=== PATIENT | male | born 1945 | race Caucasian/White ===

== ENCOUNTER 2022-10-20 15:23 | Inpatient (IN) | payer OTHER, MEDICAID ==
[~2022-10-20] VITALS: Ht 172.7 cm; Wt 74.8 kg
[2022-10-20] MEDS ORDERED: FUROSEMIDE 40MG/4ML VIAL IVP ONE (16:30)
[2022-10-20 17:32] LABS: BASOPHILS % 0.3 % (0.0-2.0); EOSINOPHILS % 0.2 % (0.0-5.0); HEMATOCRIT. 41.7 % (42.0-52.0); HEMOGLOBIN. 13.5 g/dL (14.0-18.0); LYMPHOCYTES % 9.6 % (20.0-50.0); MEAN CORPUSCULAR VOLUME 101.6 fL (80.0-94.0); MEAN PLATELET VOLUME 11.1 fl (7.4-10.4); MONOCYTES % 9.1 % (2.0-8.0); NEUTROPHILS % 80.8 % (40.0-76.0); PLATELET 122 x1000/uL (130-400); RED BLOOD CELL COUNT 4.11 mill/uL (4.7-6.1); RED CELL DISTRIBUTION WIDTH 16.5 % (11.6-14.6)
[2022-10-20 17:40] LABS: CHLORIDE 102 mEq/L (98-107)
[2022-10-20 18:33] LABS: CLARITY URINE CLEAR (CLEAR); COLOR URINE DARK YELLOW (YELLOW); KETONES URINE NEGATIVE (NEGATIVE); LEUKOCYTE ESTERASE URINE NEGATIVE (NEGATIVE); NITRITE URINE NEGATIVE (NEGATIVE); OCCULT BLOOD URINE NEGATIVE (NEGATIVE); PROTEIN URINE 1+ (NEGATIVE); SPECIFIC GRAVITY URINE 1.018 (1.005-1.030)
[2022-10-21] VITALS (8 sets, daily range): BP systolic 111–129; BP diastolic 62–80
[2022-10-21] MEDS ORDERED: DOCUSATE SODIUM 100MG CAPSULE PO PRN (08:15)
[2022-10-21] MEDS ORDERED: ACETAMINOPHEN 325MG TABLET PO PRN ×2 (08:15)
[2022-10-21] MEDS ORDERED: CLONIDINE 0.1MG TABLET PO PRN (08:15)
[2022-10-21] MEDS ORDERED: ONDANSETRON HCL 4MG/2ML INJ IV PRN (08:15)
[2022-10-21] MEDS ORDERED: HYDROCODONE/ACETAMINOPHEN 5/325MG TABLET PO PRN (08:15)
[2022-10-21] MEDS ORDERED: LORAZEPAM 0.5MG TABLET PO PRN (08:15)
[2022-10-21] MEDS ORDERED: IPRATROPIUM/ALBUTEROL 0.5-3(2.5)MG/3ML NEB HHN PRN (08:15)
[2022-10-21] MEDS ORDERED: NALOXONE HCL 0.4MG/ML VIAL IV PRN (08:30)
[2022-10-21 08:59] LABS: HEPATITIS B SURFACE ANTIGEN NEGATIVE
[2022-10-21] MEDS: FUROSEMIDE 40MG/4ML VIAL IVP SCH ×2 (09:55→18:12)
[2022-10-21] MEDS ORDERED: DIGOXIN 500MCG/2ML AMP IV NR (12:00)
[2022-10-21] MEDS ORDERED: ENOXAPARIN 100MG/ML SYR SUBCUT SCH (12:00)
[2022-10-21] MEDS ORDERED: DIGOXIN 500MCG/2ML AMP IV PRN (14:00)
[2022-10-21] MEDS: DILTIAZEM HCL 60MG TABLET PO SCH ×2 (14:19→21:18)
[2022-10-21 16:57] LABS: INR 1.4; PROTHROMBIN TIME 14.5 sec (9.6-11.0)
[2022-10-21 17:46] LABS: VITAMIN B12 SERUM >2000 pg/mL pg/mL (211-911)
[2022-10-21 17:56] LABS: *AMPHETAMINES SCREEN URINE NEGATIVE (NEGATIVE); *BARBITURATES SCREEN URINE NEGATIVE (NEGATIVE); *BENZODIAZEPINES SCREEN URINE NEGATIVE (NEGATIVE); *COCAINE SCREEN URINE NEGATIVE (NEGATIVE); CANNABINOID URINE SCREEN NEGATIVE (NEGATIVE); METHADONE URINE SCREEN NEGATIVE (NEGATIVE); OPIATES URINE SCREEN NEGATIVE (NEGATIVE); PHENCYCLIDINE URINE SCREEN NEGATIVE (NEGATIVE)
[2022-10-21] MEDS: DIGOXIN 500MCG/2ML AMP IV SCH (18:13)
[2022-10-21] MEDS: ENOXAPARIN 100MG/ML SYR SUBCUT SCH (21:18)
[2022-10-22] VITALS (7 sets, daily range): BP systolic 100–131; BP diastolic 59–72
[2022-10-22 06:47] LABS: BASOPHILS % 0.6 % (0.0-2.0); EOSINOPHILS % 1.2 % (0.0-5.0); HEMATOCRIT. 35.4 % (42.0-52.0); LYMPHOCYTES % 9.5 % (20.0-50.0); MEAN CORPUSCULAR HEMOGLOBIN 34.3 pg (28.0-32.0); MEAN CORPUSCULAR VOLUME 101.2 fL (80.0-94.0); MEAN PLATELET VOLUME 10.7 fl (7.4-10.4); MONOCYTES % 9.2 % (2.0-8.0); NEUTROPHILS % 79.5 % (40.0-76.0); PLATELET 100 x1000/uL (130-400); RED CELL DISTRIBUTION WIDTH 16.1 % (11.6-14.6)
[2022-10-22] MEDS: DILTIAZEM HCL 60MG TABLET PO SCH (06:56)
[2022-10-22] MEDS: FUROSEMIDE 40MG/4ML VIAL IVP SCH ×2 (09:07→17:42)
[2022-10-22] MEDS: ENOXAPARIN 100MG/ML SYR SUBCUT SCH ×2 (09:08→20:42)
[2022-10-22] MEDS ORDERED: CARVEDILOL 3.125 MG TABLET PO NR (13:00)
[2022-10-22] MEDS: MAGNESIUM OXIDE 400MG TABLET PO SCH (13:00)
[2022-10-22] MEDS ORDERED: MAGNESIUM 2 G PREMIX 50 ML IV NR (14:00)
[2022-10-22] MEDS ORDERED: POTASSIUM CHLORIDE 20MEQ/PACKET PO NR (15:00)
[2022-10-22] MEDS: DILTIAZEM HCL 30MG TABLET PO SCH ×2 (15:26→22:00)
[2022-10-22] MEDS: DIGOXIN 500MCG/2ML AMP IV SCH (17:41)
[2022-10-22 17:59] LABS: HEPATITIS B SURFACE ANTIGEN NEGATIVE
[2022-10-22] MEDS: CARVEDILOL 3.125 MG TABLET PO SCH (20:42)
[2022-10-23 04:00] VITALS: BP 97/59
[2022-10-23] MEDS: DILTIAZEM HCL 30MG TABLET PO SCH ×3 (05:41→22:50)
[2022-10-23 07:21] LABS: BASOPHILS % 0.8 % (0.0-2.0); EOSINOPHILS % 3.6 % (0.0-5.0); HEMATOCRIT. 34.4 % (42.0-52.0); HEMOGLOBIN. 11.8 g/dL (14.0-18.0); LYMPHOCYTES % 10.3 % (20.0-50.0); MEAN CORPUSCULAR HEMOGLOBIN 34.4 pg (28.0-32.0); MEAN CORPUSCULAR VOLUME 100.6 fL (80.0-94.0); MEAN PLATELET VOLUME 10.8 fl (7.4-10.4); MONOCYTES % 11.4 % (2.0-8.0); NEUTROPHILS % 73.9 % (40.0-76.0); PLATELET 114 x1000/uL (130-400); RED BLOOD CELL COUNT 3.41 mill/uL (4.7-6.1); RED CELL DISTRIBUTION WIDTH 15.8 % (11.6-14.6)
[2022-10-23 08:00] VITALS: BP 123/83
[2022-10-23] MEDS: FUROSEMIDE 40MG/4ML VIAL IVP SCH ×2 (08:36→16:29)
[2022-10-23] MEDS: ENOXAPARIN 100MG/ML SYR SUBCUT SCH (08:37)
[2022-10-23] MEDS: LISINOPRIL 2.5MG TABLET PO SCH (08:37)
[2022-10-23] MEDS: MAGNESIUM OXIDE 400MG TABLET PO SCH (08:38)
[2022-10-23] MEDS: CARVEDILOL 3.125 MG TABLET PO SCH ×2 (08:38→21:00)
[2022-10-23] MEDS ORDERED: POTASSIUM CHLORIDE 20MEQ/PACKET PO NR (11:30)
[2022-10-23 12:00] VITALS: BP 118/60
[2022-10-23 16:00] VITALS: BP 106/61
[2022-10-23] MEDS: DIGOXIN 125MCG TABLET PO SCH (17:28)
[2022-10-23 20:19] VITALS: BP 120/60
[2022-10-23] MEDS: ENOXAPARIN 80MG/0.8ML SYR SUBCUT SCH (21:55)
[2022-10-24] VITALS: BP 113/65
[2022-10-24 04:00] VITALS: BP 106/63
[2022-10-24 05:50] LABS: BASOPHILS % 0.6 % (0.0-2.0); EOSINOPHILS % 3.8 % (0.0-5.0); HEMATOCRIT. 35.9 % (42.0-52.0); HEMOGLOBIN. 11.9 g/dL (14.0-18.0); MEAN CORPUSCULAR HEMOGLOBIN 33.2 pg (28.0-32.0); MEAN CORPUSCULAR VOLUME 99.8 fL (80.0-94.0); MONOCYTES % 12.7 % (2.0-8.0); NEUTROPHILS % 68.9 % (40.0-76.0); PLATELET 126 x1000/uL (130-400); RED BLOOD CELL COUNT 3.59 mill/uL (4.7-6.1); RED CELL DISTRIBUTION WIDTH 15.9 % (11.6-14.6)
[2022-10-24] MEDS: DILTIAZEM HCL 30MG TABLET PO SCH ×3 (06:00→22:00)
[2022-10-24] MEDS ORDERED: LIDOCAINE HCL 4% CREAM 76GM TUBE TP SCH (07:00)
[2022-10-24 08:01] VITALS: BP 117/61
[2022-10-24 08:08] LABS: HIV SCREEN 4G Non Reactive (Non Reactive)
[2022-10-24] MEDS: FUROSEMIDE 40MG/4ML VIAL IVP SCH ×2 (09:00→17:14)
[2022-10-24] MEDS: LISINOPRIL 2.5MG TABLET PO SCH (09:00)
[2022-10-24] MEDS: MAGNESIUM OXIDE 400MG TABLET PO SCH (09:01)
[2022-10-24] MEDS: CARVEDILOL 3.125 MG TABLET PO SCH ×2 (09:01→21:00)
[2022-10-24] MEDS: ENOXAPARIN 80MG/0.8ML SYR SUBCUT SCH ×2 (09:01→21:08)
[2022-10-24 11:26] VITALS: BP 133/55
[2022-10-24] MEDS ORDERED: POTASSIUM CHLORIDE 20MEQ TABLET SR PO NR (11:45)
[2022-10-24 15:25] VITALS: BP 131/73
[2022-10-24] MEDS: DIGOXIN 125MCG TABLET PO SCH (17:14)
[2022-10-24 19:54] VITALS: BP 122/64
[2022-10-24] MEDS ORDERED: POTASSIUM CHLORIDE 20MEQ/PACKET PO NR (21:00)
[2022-10-25] VITALS (7 sets, daily range): BP systolic 92–136; BP diastolic 40–61
[2022-10-25] MEDS: DILTIAZEM HCL 30MG TABLET PO SCH ×3 (06:02→21:06)
[2022-10-25 06:48] LABS: BASOPHILS % 0.8 % (0.0-2.0); EOSINOPHILS % 1.4 % (0.0-5.0); HEMATOCRIT. 32.3 % (42.0-52.0); HEMOGLOBIN. 10.6 g/dL (14.0-18.0); LYMPHOCYTES % 12.9 % (20.0-50.0); MEAN CORPUSCULAR VOLUME 100.6 fL (80.0-94.0); MEAN PLATELET VOLUME 9.8 fl (7.4-10.4); MONOCYTES % 14.8 % (2.0-8.0); NEUTROPHILS % 70.1 % (40.0-76.0); PLATELET 133 x1000/uL (130-400); RED BLOOD CELL COUNT 3.21 mill/uL (4.7-6.1); RED CELL DISTRIBUTION WIDTH 16.1 % (11.6-14.6)
[2022-10-25 08:26] LABS: CHLORIDE 102 mEq/L (98-107)
[2022-10-25] MEDS: LISINOPRIL 2.5MG TABLET PO SCH (08:37)
[2022-10-25] MEDS: FUROSEMIDE 40MG/4ML VIAL IVP SCH ×2 (08:37→17:00)
[2022-10-25] MEDS: MAGNESIUM OXIDE 400MG TABLET PO SCH (08:37)
[2022-10-25] MEDS: ENOXAPARIN 80MG/0.8ML SYR SUBCUT SCH (08:38)
[2022-10-25] MEDS: CARVEDILOL 3.125 MG TABLET PO SCH ×2 (08:38→21:00)
[2022-10-25 08:46] LABS: DIGOXIN 0.7 ng/mL (0.9-2.0)
[2022-10-25] MEDS ORDERED: ALBUTEROL (0.083%) 2.5MG/3ML NEB HHN PRN (16:30)
[2022-10-25] MEDS ORDERED: IPRATROPIUM BROMIDE (0.02%) 0.5MG/2.5ML NEB HHN PRN (16:30)
[2022-10-25] MEDS ORDERED: RIVAROXABAN 10 MG TABLET PO SCH (17:00)
[2022-10-25] MEDS: DIGOXIN 125MCG TABLET PO SCH (18:00)
[2022-10-26] VITALS (7 sets, daily range): BP systolic 91–145; BP diastolic 41–76
[2022-10-26] MEDS: DILTIAZEM HCL 30MG TABLET PO SCH ×3 (06:00→22:00)
[2022-10-26 07:10] LABS: BASOPHILS % 0.5 % (0.0-2.0); EOSINOPHILS % 0.6 % (0.0-5.0); HEMATOCRIT. 24.5 % (42.0-52.0); HEMOGLOBIN. 8.2 g/dL (14.0-18.0); LYMPHOCYTES % 11.7 % (20.0-50.0); MEAN CORPUSCULAR HEMOGLOBIN 33.7 pg (28.0-32.0); MEAN PLATELET VOLUME 9.7 fl (7.4-10.4); MONOCYTES % 12.9 % (2.0-8.0); NEUTROPHILS % 74.3 % (40.0-76.0); PLATELET 124 x1000/uL (130-400); RED BLOOD CELL COUNT 2.42 mill/uL (4.7-6.1); RED CELL DISTRIBUTION WIDTH 15.7 % (11.6-14.6)
[2022-10-26 07:39] LABS: CHLORIDE 102 mEq/L (98-107)
[2022-10-26] MEDS: CARVEDILOL 3.125 MG TABLET PO SCH ×2 (09:00→21:00)
[2022-10-26] MEDS: LISINOPRIL 2.5MG TABLET PO SCH (09:00)
[2022-10-26] MEDS: FUROSEMIDE 40MG/4ML VIAL IVP SCH ×2 (09:34→17:00)
[2022-10-26] MEDS: MAGNESIUM OXIDE 400MG TABLET PO SCH (09:34)
[2022-10-26] MEDS: DIGOXIN 125MCG TABLET PO SCH (18:00)
[2022-10-27] VITALS (11 sets, daily range): BP systolic 92–113; BP diastolic 44–65
[2022-10-27] MEDS: DILTIAZEM HCL 30MG TABLET PO SCH ×3 (06:00→22:00)
[2022-10-27 07:53] LABS: CHLORIDE 102 mEq/L (98-107)
[2022-10-27 08:15] LABS: BASOPHILS % 0.6 % (0.0-2.0); EOSINOPHILS % 0.6 % (0.0-5.0); LYMPHOCYTES % 15.5 % (20.0-50.0); MEAN CORPUSCULAR HEMOGLOBIN 34.1 pg (28.0-32.0); MEAN CORPUSCULAR VOLUME 101.1 fL (80.0-94.0); MONOCYTES % 14.4 % (2.0-8.0); NEUTROPHILS % 68.9 % (40.0-76.0); PLATELET 129 x1000/uL (130-400); RED CELL DISTRIBUTION WIDTH 16.1 % (11.6-14.6)
[2022-10-27] MEDS: LISINOPRIL 2.5MG TABLET PO SCH (08:46)
[2022-10-27] MEDS: CARVEDILOL 3.125 MG TABLET PO SCH ×2 (08:46→21:00)
[2022-10-27 08:58] LABS: HEMATOCRIT. 20.2 % (42.0-52.0); HEMOGLOBIN. 6.8 g/dL (14.0-18.0)
[2022-10-27] MEDS: MAGNESIUM OXIDE 400MG TABLET PO SCH (09:04)
[2022-10-27] MEDS: FUROSEMIDE 40MG/4ML VIAL IVP SCH ×2 (09:04→17:34)
[2022-10-27 11:13] LABS: T4 FREE 1.07 ng/dL (0.76-1.46)
[2022-10-27] MEDS: DIGOXIN 125MCG TABLET PO SCH (17:30)
[2022-10-27 19:29] LABS: HEMATOCRIT 22.1 % (42.0-52.0); HEMOGLOBIN 7.5 g/dL (14.0-18.0)
[2022-10-28] VITALS: BP 112/55
[2022-10-28 04:00] VITALS: BP 107/53
[2022-10-28] MEDS: DILTIAZEM HCL 30MG TABLET PO SCH (06:00)
[2022-10-28 07:10] LABS: BASOPHILS % 0.5 % (0.0-2.0); EOSINOPHILS % 0.6 % (0.0-5.0); HEMATOCRIT. 22.9 % (42.0-52.0); HEMOGLOBIN. 7.9 g/dL (14.0-18.0); MEAN CORPUSCULAR HEMOGLOBIN 34.7 pg (28.0-32.0); MEAN CORPUSCULAR VOLUME 100.2 fL (80.0-94.0); MEAN PLATELET VOLUME 9.5 fl (7.4-10.4); NEUTROPHILS % 71.9 % (40.0-76.0); PLATELET 141 x1000/uL (130-400); RED BLOOD CELL COUNT 2.28 mill/uL (4.7-6.1); RED CELL DISTRIBUTION WIDTH 17.1 % (11.6-14.6)
[2022-10-28 07:22] LABS: CHLORIDE 102 mEq/L (98-107)
[2022-10-28 08:00] VITALS: BP 99/48
[2022-10-28] MEDS: LISINOPRIL 2.5MG TABLET PO SCH (08:19)
[2022-10-28] MEDS: CARVEDILOL 3.125 MG TABLET PO SCH (08:19)
[2022-10-28] MEDS: FUROSEMIDE 40MG/4ML VIAL IVP SCH ×2 (08:45→17:28)
[2022-10-28] MEDS: MAGNESIUM OXIDE 400MG TABLET PO SCH (08:46)
[2022-10-28 12:00] VITALS: BP 111/51
[2022-10-28 16:00] VITALS: BP 99/43
[2022-10-28] MEDS: DIGOXIN 125MCG TABLET PO SCH (17:28)
[2022-10-28] MEDS: DOCUSATE SODIUM 100MG CAPSULE PO SCH (17:28)
[2022-10-28 20:00] VITALS: BP 98/46
[2022-10-29] VITALS (11 sets, daily range): BP systolic 94–157; BP diastolic 45–96
[2022-10-29 07:36] LABS: BASOPHILS % 0.7 % (0.0-2.0); EOSINOPHILS % 0.9 % (0.0-5.0); LYMPHOCYTES % 15.9 % (20.0-50.0); MEAN CORPUSCULAR HEMOGLOBIN 33.4 pg (28.0-32.0); MEAN PLATELET VOLUME 9.2 fl (7.4-10.4); MONOCYTES % 13.5 % (2.0-8.0); PLATELET 141 x1000/uL (130-400); RED BLOOD CELL COUNT 1.89 mill/uL (4.7-6.1); RED CELL DISTRIBUTION WIDTH 16.9 % (11.6-14.6)
[2022-10-29 07:53] LABS: CHLORIDE 103 mEq/L (98-107)
[2022-10-29 07:57] LABS: HEMATOCRIT. 18.9 % (42.0-52.0); HEMOGLOBIN. 6.3 g/dL (14.0-18.0)
[2022-10-29] MEDS: DOCUSATE SODIUM 100MG CAPSULE PO SCH ×2 (09:12→21:33)
[2022-10-29] MEDS: FUROSEMIDE 40MG/4ML VIAL IVP SCH (09:12)
[2022-10-29] MEDS: LISINOPRIL 2.5MG TABLET PO SCH (09:13)
[2022-10-29] MEDS: MAGNESIUM OXIDE 400MG TABLET PO SCH (09:13)
[2022-10-29] MEDS: POLYETHYLENE GLYCOL 3350 (17GM) 1 DOSE PACK PO SCH (13:51)
[2022-10-29 21:16] LABS: HEMATOCRIT 21.7 % (42.0-52.0); HEMOGLOBIN 7.1 g/dL (14.0-18.0)
[2022-10-29] MEDS: DIGOXIN 125MCG TABLET PO SCH (21:34)
[2022-10-29] MEDS: CARVEDILOL 3.125 MG TABLET PO SCH (21:34)
[2022-10-30] VITALS (9 sets, daily range): BP systolic 94–107; BP diastolic 46–60
[2022-10-30 06:17] LABS: MEAN CORPUSCULAR VOLUME 100.1 fL (80.0-94.0); PLATELET 163 x1000/uL (130-400); RED BLOOD CELL COUNT 2.09 mill/uL (4.7-6.1); RED CELL DISTRIBUTION WIDTH 16.7 % (11.6-14.6)
[2022-10-30 07:44] LABS: HEMATOCRIT. 20.9 % (42.0-52.0); HEMOGLOBIN. 6.9 g/dL (14.0-18.0)
[2022-10-30 08:08] LABS: CHLORIDE 103 mEq/L (98-107)
[2022-10-30] MEDS: LISINOPRIL 2.5MG TABLET PO SCH (09:00)
[2022-10-30] MEDS: CARVEDILOL 3.125 MG TABLET PO SCH ×2 (09:00→20:46)
[2022-10-30] MEDS: FUROSEMIDE 40MG/4ML VIAL IVP SCH (09:00)
[2022-10-30] MEDS: DOCUSATE SODIUM 100MG CAPSULE PO SCH ×2 (09:54→17:29)
[2022-10-30] MEDS: MAGNESIUM OXIDE 400MG TABLET PO SCH (09:54)
[2022-10-30] MEDS: POLYETHYLENE GLYCOL 3350 (17GM) 1 DOSE PACK PO SCH (09:54)
[2022-10-30] MEDS: DIGOXIN 125MCG TABLET PO SCH (17:29)
[2022-10-30 18:38] LABS: NUCLEATED RED BLOOD CELLS 1 /100 WBC; PLATELET ESTIMATE NORMAL
[2022-10-31] VITALS (7 sets, daily range): BP systolic 97–118; BP diastolic 47–74
[2022-10-31 01:17] LABS: HEMOGLOBIN 8.5 g/dL (14.0-18.0)
[2022-10-31 06:02] LABS: BASOPHILS % 0.7 % (0.0-2.0); EOSINOPHILS % 1.5 % (0.0-5.0); HEMATOCRIT. 24.6 % (42.0-52.0); HEMOGLOBIN. 8.4 g/dL (14.0-18.0); LYMPHOCYTES % 15.9 % (20.0-50.0); MEAN CORPUSCULAR HEMOGLOBIN 33.5 pg (28.0-32.0); MEAN CORPUSCULAR VOLUME 98.4 fL (80.0-94.0); MEAN PLATELET VOLUME 8.5 fl (7.4-10.4); MONOCYTES % 14.8 % (2.0-8.0); NEUTROPHILS % 67.1 % (40.0-76.0); PLATELET 184 x1000/uL (130-400)
[2022-10-31 07:27] LABS: CHLORIDE 104 mEq/L (98-107)
[2022-10-31 07:36] LABS: GAMMA GLUTAMYL TRANSPEPTIDASE 157 IU/L (11-50)
[2022-10-31] MEDS: FUROSEMIDE 40MG/4ML VIAL IVP SCH (08:51)
[2022-10-31] MEDS: CARVEDILOL 3.125 MG TABLET PO SCH (08:52)
[2022-10-31] MEDS: LISINOPRIL 2.5MG TABLET PO SCH (08:52)
[2022-10-31] MEDS: DOCUSATE SODIUM 100MG CAPSULE PO SCH ×2 (08:53→17:00)
[2022-10-31] MEDS: MAGNESIUM OXIDE 400MG TABLET PO SCH (08:53)
[2022-10-31] MEDS: POLYETHYLENE GLYCOL 3350 (17GM) 1 DOSE PACK PO SCH (08:53)
[2022-10-31] MEDS ORDERED: DIATR MEGLU/DIATRIZOATE SOLN 30ML PO NR (10:30)
[2022-10-31] MEDS ORDERED: VITA1CAP PO (16:43)
[2022-10-31] MEDS ORDERED: CHOL400D7 PO (16:43)
[2022-10-31] MEDS ORDERED: CETI10CA2 PO (16:47)
[2022-10-31] MEDS ORDERED: XAR15 PO (16:48)
[2022-10-31] MEDS ORDERED: METO-396 PO (16:48)
[2022-10-31] MEDS ORDERED: EMPA10TA PO (16:49)
[2022-10-31] MEDS ORDERED: ATOR40TA70 MT (16:50)
[2022-10-31] MEDS ORDERED: TAMS-11 PO (16:50)
[2022-10-31] MEDS ORDERED: DICL100G31 TP (16:50)
[2022-10-31] MEDS ORDERED: GABA-532 PO (16:51)
[2022-10-31] MEDS ORDERED: TRIA1TAB94 PO (16:52)
[2022-10-31] MEDS ORDERED: LOSA100T32 PO (16:52)
[2022-10-31] MEDS ORDERED: TORS20TA4 PO (16:55)
[2022-10-31] MEDS: DIGOXIN 125MCG TABLET PO SCH (18:11)
[2022-10-31] MEDS: CARVEDILOL 6.25 MG TABLET PO SCH (21:22)
[2022-11-01] VITALS: BP 109/67
[2022-11-01 04:00] VITALS: BP 113/57
[2022-11-01 05:21] LABS: BASOPHILS % 0.6 % (0.0-2.0); EOSINOPHILS % 1.6 % (0.0-5.0); HEMATOCRIT. 24.9 % (42.0-52.0); HEMOGLOBIN. 8.5 g/dL (14.0-18.0); MEAN CORPUSCULAR HEMOGLOBIN 33.9 pg (28.0-32.0); MEAN CORPUSCULAR VOLUME 99.8 fL (80.0-94.0); MEAN PLATELET VOLUME 8.7 fl (7.4-10.4); MONOCYTES % 13.1 % (2.0-8.0); NEUTROPHILS % 69.7 % (40.0-76.0); PLATELET 198 x1000/uL (130-400); RED BLOOD CELL COUNT 2.49 mill/uL (4.7-6.1); RED CELL DISTRIBUTION WIDTH 18.4 % (11.6-14.6)
[2022-11-01 05:52] LABS: CHLORIDE 101 mEq/L (98-107)
[2022-11-01 08:00] VITALS: BP 106/50
[2022-11-01] MEDS: POLYETHYLENE GLYCOL 3350 (17GM) 1 DOSE PACK PO SCH (08:21)
[2022-11-01] MEDS: LISINOPRIL 2.5MG TABLET PO SCH (08:21)
[2022-11-01] MEDS: DOCUSATE SODIUM 100MG CAPSULE PO SCH ×2 (08:54→15:17)
[2022-11-01] MEDS: MAGNESIUM OXIDE 400MG TABLET PO SCH (08:55)
[2022-11-01] MEDS: CARVEDILOL 6.25 MG TABLET PO SCH ×2 (08:55→21:00)
[2022-11-01] MEDS: FUROSEMIDE 40MG/4ML VIAL IVP SCH (08:56)
[2022-11-01 12:00] VITALS: BP 102/42
[2022-11-01 16:00] VITALS: BP 101/52
[2022-11-01] MEDS: DIGOXIN 125MCG TABLET PO SCH (19:16)
[2022-11-01 20:00] VITALS: BP 103/59
[2022-11-02] VITALS: BP 113/72
[2022-11-02 04:00] VITALS: BP 112/61
[2022-11-02 06:10] LABS: HEMATOCRIT. 25.9 % (42.0-52.0); HEMOGLOBIN. 8.9 g/dL (14.0-18.0); MEAN CORPUSCULAR HEMOGLOBIN 34.1 pg (28.0-32.0); MEAN CORPUSCULAR VOLUME 99.4 fL (80.0-94.0); MEAN PLATELET VOLUME 8.6 fl (7.4-10.4); PLATELET 218 x1000/uL (130-400); RED BLOOD CELL COUNT 2.61 mill/uL (4.7-6.1); RED CELL DISTRIBUTION WIDTH 18.2 % (11.6-14.6)
[2022-11-02 08:00] VITALS: BP 138/57
[2022-11-02 08:06] LABS: CHLORIDE 102 mEq/L (98-107)
[2022-11-02] MEDS ORDERED: FUROSEMIDE 40MG TABLET PO SCH (09:00)
[2022-11-02] MEDS: POLYETHYLENE GLYCOL 3350 (17GM) 1 DOSE PACK PO SCH (09:00)
[2022-11-02] MEDS: DOCUSATE SODIUM 100MG CAPSULE PO SCH ×3 (09:00→17:00)
[2022-11-02 10:18] LABS: PLATELET ESTIMATE NORMAL
[2022-11-02] MEDS: CARVEDILOL 6.25 MG TABLET PO SCH (11:24)
[2022-11-02] MEDS: LISINOPRIL 2.5MG TABLET PO SCH (11:25)
[2022-11-02] MEDS: MAGNESIUM OXIDE 400MG TABLET PO SCH (11:30)
[2022-11-02 12:00] VITALS: BP 110/50
[2022-11-02] MEDS ORDERED: COR6 PO (12:45)
[2022-11-02] MEDS ORDERED: RIVA10TA PO (12:45)
[2022-11-02] MEDS ORDERED: FURO40TA5 PO (12:45)
[2022-11-02] MEDS ORDERED: LISI2.5T47 PO (12:45)
[2022-11-02 16:00] VITALS: BP 138/46
[2022-11-02] MEDS: DIGOXIN 125MCG TABLET PO SCH (18:09)
== END 2022-11-02 18:21 | DRG 264 ==
LOC: ER 15:23 → 3WST 20:01 → EDBEDREQ 23:48 → ENRESERV 10-21 01:03 → 6EST 10-25 15:08 → 3WST 10-25 16:10 → 6EST 10-25 16:12 → 7EST 10-26 17:31
PROVIDERS: ADMIT Internal Medicine; ATTEND Internal Medicine
PROC: 0JBN0ZZ Excision of Right Lower Leg Subcutaneous Tissue and Fascia, Open Approach (ICD-10-PCS; principal; 2022-10-24)
PROC: 30233N1 Transfusion of Nonautologous Red Blood Cells into Peripheral Vein, Percutaneous Approach (ICD-10-PCS; 2022-10-27)
DX: I13.0 Hypertensive heart and chronic kidney disease with heart failure and stage 1 through stage 4 chronic kidney disease, or unspecified chronic kidney disease (principal); J96.00 Acute respiratory failure, unspecified whether with hypoxia or hypercapnia; I50.23 Acute on chronic systolic (congestive) heart failure; L03.115 Cellulitis of right lower limb; I48.20 Chronic atrial fibrillation, unspecified; E46 Unspecified protein-calorie malnutrition; R18.8 Other ascites; N13.30 Unspecified hydronephrosis; D68.9 Coagulation defect, unspecified; J91.8 Pleural effusion in other conditions classified elsewhere; L03.116 Cellulitis of left lower limb; L97.919 Non-pressure chronic ulcer of unspecified part of right lower leg with unspecified severity; J81.1 Chronic pulmonary edema; N17.9 Acute kidney failure, unspecified; I42.9 Cardiomyopathy, unspecified; D53.9 Nutritional anemia, unspecified; N18.9 Chronic kidney disease, unspecified; D69.6 Thrombocytopenia, unspecified; K74.60 Unspecified cirrhosis of liver; E03.9 Hypothyroidism, unspecified; E83.42 Hypomagnesemia; E87.6 Hypokalemia; I08.1 Rheumatic disorders of both mitral and tricuspid valves; I49.3 Ventricular premature depolarization; R74.01 Elevation of levels of liver transaminase levels; I83.019 Varicose veins of right lower extremity with ulcer of unspecified site; R29.6 Repeated falls; S30.1XXA Contusion of abdominal wall, initial encounter; S70.12XA Contusion of left thigh, initial encounter; W19.XXXA Unspecified fall, initial encounter; Z79.84 Long term (current) use of oral hypoglycemic drugs; Z79.01 Long term (current) use of anticoagulants; Z79.899 Other long term (current) drug therapy; Z68.25 Body mass index [BMI] 25.0-25.9, adult; Y93.89 Activity, other specified; Y92.89 Other specified places as the place of occurrence of the external cause; Y99.8 Other external cause status
CPT/HCPCS: 36415; 71045; 73502; 74176; 76700; 80048; 80053; 80076; 80162; 80305; 81003; 82040; 82248; 82270; 82607; 82728; 82746; 82977; 83010; 83540; 83550; 83615; 83625; 83735; 83880; 84134; 84145; 84439; 84443; 84481; 85014; 85018; 85025; 85044; 86705; 86709; 86803; 86850; 86900; 86920; 87340; 87389; 93005; 93306; 93970; 97116; 97162; 97530; 99285; J1160; J1650; J1940; J3475; P9016; Q9963